=== PATIENT | male | born 1950 | race Caucasian/White ===

== ENCOUNTER 2016-11-22 07:05 | Day surgery (SDC) | payer OTHER ==
[2016-11-08 09:56] VITALS: BMI 29.0
[~2016-11-22] VITALS: Ht 180.3 cm; Wt 94.1 kg
[~2016-11-22 07:05] MED LIST: ACET-1256 PO; ASPI81TA28 PO; ATOR-26 PO; CEFAZOLIN IV 2,000 MG/60 ML D5W IV SCH; CLR10 PO; ECHI1CAP PO; EZET10TA63 PO; FENO67CA2 PO; FLUT0.15 NAE; GLUCTAB7 PO; IPRA1AER2 INH; LACTATED RINGER'S 1000ML 1,000 ML IV SCH; LISI-729 PO; METO25TA3 PO; MULT-1027 PO; NCDT21X TD; NITR0.4S UT; NXM/40 PO; RANI300T2 PO; SERT50TA PO; TRMCR130WC TOP; VGR50 PO; VITA1TAB4 PO; VITACAP26 PO; [UNRECOGNIZED DRUG - CODE] PO
[2016-11-22] MEDS ORDERED: MEPERIDINE HCL 25 MG/ML CARP IV PRN (07:30)
[2016-11-22] MEDS ORDERED: LABETALOL HCL IV 5 MG/ML 20ML IV PRN (07:30)
[2016-11-22] MEDS ORDERED: ATROPINE SULFATE 0.1 MG/ML 5ML SYR IV PRN (07:30)
[2016-11-22] MEDS ORDERED: HYDROmorphone INJ 2 MG/ML SYR/VIAL IV PRN (07:30)
[2016-11-22] MEDS ORDERED: PHENYLEPHRINE 100MCG/ML 5ML SYR IV PRN (07:30)
[2016-11-22] MEDS ORDERED: FLUMAZENIL 0.1 MG/1 ML 10 ML VIAL IV PRN (07:30)
[2016-11-22] MEDS ORDERED: ONDANSETRON INJ 2 MG/ML 2 ML VIAL IV PRN (07:30)
[2016-11-22] MEDS ORDERED: NALOXONE HCL 0.4 MG/1 ML VIAL/CARP IV PRN (07:30)
[2016-11-22] MEDS ORDERED: EpHEDrine SULFATE INJ 50 MG/ML AMP IV PRN (07:30)
[2016-11-22 07:35] VITALS: BP 125/79; PULSE 65; TEMP 36.6; O2SAT 96; Ht 180.3 cm; Wt 94.1 kg
[2016-11-22] MEDS ORDERED: LIDOCAINE 2% 20 MG/ML 5ML SYR ONE (07:52)
[2016-11-22] MEDS ORDERED: ROCURONIUM BROMIDE 10 MG/ML 5 ML VIAL ONE (07:52)
[2016-11-22] MEDS ORDERED: SUCCINYLCHOLINE CHLORIDE 20 MG/ML 10 ML VIAL IV ONE (07:52)
[2016-11-22] MEDS ORDERED: PROPOFOL IV EMULSION 10 MG/ML 20 ML VIAL IV ONE ×2 (07:52→09:45)
[2016-11-22] MEDS ORDERED: FENTANYL CITRATE INJ 50 MCG/1 ML 2 ML VIAL ONE (07:53)
[2016-11-22] MEDS ORDERED: MIDAZOLAM HCL 1 MG/ML 2ML VIAL ONE (07:53)
--- NOTE | 2016-11-22 08:59 | History and Physical ---
History & Physical Date Nov 22, 2016. History of Present Illness The patient is a 66 year old male with a vocal cord lesion noted on laryngoscopy. History of smoking. Additional History Hepatic Disease: No Endocrine Disorder: No Kidney Disease: No Hypertension: No Heart Disease: No Bleeding Tendencies: No Infectious Diseases: No Allergies Coded Allergies: Gluten (Unverified Allergy, Unknown, RYE OATS, WHEAT-GI UPSET, BELLY PAIN , 11/22/16) NO KNOWN DRUG ALLERGIES (Unverified Allergy, Unknown, NONE, 11/22/16) Home Medications Scheduled Aspirin (Aspirin Ec), 81 MG PO HS Atorvastatin (Lipitor), 80 MG PO QAM Diphenhydramine-Acetaminophen (Acetaminophen/Diphenhydra), 2 TAB PO HS Echinacea (Echinacea), 380 MG PO QAM Esomeprazole Magnesium (Nexium), 40 MG PO QAM Ezetimibe (Zetia), 10 MG PO HS Fenofibrate (Tricor), 67 MG PO QAM Fluticasone Propionate (Nasal) (Flonase Allergy Relief), 2 SPRAYS TAYLOR HS Yaypnfyjexk-Ihoixjhcdyk-Qqp C- (Glucosamine Chondroitin), 1 TAB PO QAM Ipratropium-Albuterol (Combivent Respimat), 1 PUFFS INH HS Lisinopril (Zestril), 2.5 MG PO QAM Loratadine (Claritin), 10 MG PO QAM Metoprolol Succ (Toprol Xl) (Toprol-Xl), 25 MG PO QAM Multiple Vitamin (Multi Vitamin), 1 TAB PO QAM Nicotine (Nicoderm Cq 21MG Patch), 1 PATCH TD DAILY Nitroglycerin (Nitrostat), 0.4 MG UT PRN Ranitidine Hcl (Zantac), 300 MG PO HS Sertraline (Zoloft), 50 MG PO HS Sildenafil Citrate (Viagra), 50 MG PO PRN Triamcinolone Acet (Aristocort 0.1%), 1 DOSE TOP PRN Vitamin E (Vitamin E), 400 UNITS PO QAM Vitamins C & E (Vitamin C), 1 TAB PO QAM Scheduled PRN Acetaminophen (Tylenol), 1,000 MG PO HS PRN for RN Physical Examination Skin: warm/dry, no rash Eyes: normal inspection, EOMI, sclerae normal ENT: normal ENT inspection, pharynx normal Head: normocephalic, atraumatic Neck: supple, no adenopathy, trachea midline Respiratory/Chest: lungs clear, normal breath sounds, no respiratory distress Cardiovascular: regular rate, rhythm, no edema, no murmur Diagnosis Vocal cord lesion, history of smoking Plan of Treatment Proceed with DL and biopsy - scds - ancef
[2016-11-22] MEDS ORDERED: OXYC-57 PO (09:09)
[2016-11-22] MEDS ORDERED: CEPH500C2 PO (09:09)
--- NOTE | 2016-11-22 09:13 | Discharge Instructions ---
Discharge Instructions Date of Service Nov 22, 2016. Admission Reason for Admission: Laryngopharyngeal Reflux Disease, Vocal Cord Lesio Discharge Discharge Diagnosis / Problem: Laryngeal lesion Discharge Goals Goal(s): Diagnostic testing Activity Recommendations Activity Limitations: as noted below (No voice use for 2 days, followed by 3 days of limited voice use. ) Lifting Limitations: no more than 5 pounds, no more than 10 pounds, until after follow-up appointment Exercise/Sports Limitations: until after follow-up appointment May Resume Sexual Activity: after follow-up appointment Driving or Machine Use: ok to drive 24 hrs after procedure as long as you are not taking narcotic pain medication . Instructions / Follow-Up Instructions / Follow-Up No voice use for 2 days, followed by limited voice use for 3 days Take antibiotic as directed take pain medication as needed Call for any bleeding from the throat Go to nearest ED if having any difficulty breathing Ok to restart your aspirin and vitamin E supplements in 48 hrs Current Hospital Diet Patient's current hospital diet: Discharge Diet Recommended Diet: Regular Diet Pending Studies Studies pending at discharge: no Medical Emergencies . Who to Call and When: Medical Emergencies: If at any time you feel your situation is an emergency, please call 911 immediately. . Non-Emergent Contact Non-Emergency issues call your: Specialist Contact Number: [phone] . . "Provider Documentation" section prepared by Neo Martin. VTE Core Measure Inpt VTE Proph given/why not?: Treatment not indicated [place] Drug Monitoring Program Search Results: patient reviewed within database, no issues identified
[2016-11-22] MEDS ORDERED: ONDANSETRON INJ 2 MG/ML 2 ML VIAL ONE (09:45)
[2016-11-22] MEDS ORDERED: DEXAMETHASONE SOD INJ 4 MG/ML VIAL ONE (09:45)
[2016-11-22] MEDS ORDERED: EpHEDrine SULFATE INJ 50 MG/ML AMP ONE (09:45)
--- NOTE | 2016-11-22 10:23 | [facility] Post Operative Brief Note ---
Immediate Operative Summary Operative Date Nov 22, 2016. Pre-Operative Diagnosis Vocal cord lesion Post-Operative Diagnosis Vocal cord lesion Procedure(s) Performed Direct Laryngoscopy and Biopsy Laryngeal Lesion Surgeon Dr. Neo Martin Customer Service Coordinator Surgeon(s) None Estimated Blood Loss 1ml Findings Right vocal cord lesion Specimens A. Right Vocal Cord Biopsy Drains none Anesthesia GETA Complication(s) None Disposition Recovery Room / PACU
[2016-11-22] MEDS: FENTANYL CITRATE INJ 50 MCG/1 ML 2 ML VIAL IV PRN ×3 (10:26→10:36)
--- NOTE | 2016-11-22 11:07 | Anesthesiology Progress Note ---
Anesthesia Post Op Note Date & Time Nov 22, 2016 at 11:07 Vital Signs Pain Intensity: 1 Vital Signs Past 12 Hours Date Time Temp Pulse Resp B/P Pulse Ox O2 Delivery O2 Flow Rate FiO2 11/22/16 10:55 108/65 11/22/16 10:54 69 20 98 11/22/16 10:54 69 20 11/22/16 10:50 120/63 11/22/16 10:49 63 13 95 11/22/16 10:49 62 13 11/22/16 10:48 65 16 96 11/22/16 10:48 36.8 65 16 11/22/16 10:45 115/67 11/22/16 10:43 66 20 94 11/22/16 10:43 65 20 11/22/16 10:40 118/66 11/22/16 10:38 65 18 96 11/22/16 10:38 64 18 11/22/16 10:35 127/73 11/22/16 10:33 66 17 11/22/16 10:33 66 17 98 11/22/16 10:32 68 12 99 11/22/16 10:32 69 12 11/22/16 10:30 119/67 11/22/16 10:27 66 11 11/22/16 10:27 64 11 102/71 100 11/22/16 10:17 36.5 68 16 120/68 99 Mask 10 11/22/16 07:35 36.6 65 20 125/79 96 Room Air Notes Mental Status: alert / awake / arousable, participated in evaluation Pt Amnestic to Procedure: Yes Nausea / Vomiting: adequately controlled Pain: adequately controlled Airway Patency, RR, SpO2: stable & adequate BP & HR: stable & adequate Hydration State: stable & adequate Anesthetic Complications: no major complications apparent
[2016-11-22 11:10] VITALS: BP 167/94; PULSE 104; TEMP 36.6; O2SAT 92
[2016-11-22 11:40] VITALS: BP 117/75; PULSE 63; TEMP 36.1; O2SAT 95
[2016-11-22 12:10] VITALS: BP 125/75; PULSE 71; TEMP 36; O2SAT 95
--- NOTE | 2016-11-22 13:07 | OPERATIVE REPORT ---
DATE OF OPERATION: 11/22/2016 PREOPERATIVE DIAGNOSIS: Right vocal cord lesion. POSTOPERATIVE DIAGNOSIS: Same. PROCEDURE: Direct laryngoscopy with right vocal cord biopsy. SPECIMEN: Right vocal cord biopsy sent for permanent section. COMPLICATIONS: None. DRAINS: None. ESTIMATED BLOOD LOSS: 1 mL. IV FLUIDS: 900 mL. URINE OUTPUT: 0 mL. ANESTHESIA: General endotracheal anesthesia. FINDINGS: See body of operative report. INDICATIONS AND HISTORY: This is a 66-year-old male who presented to my office with complaints of some hoarseness and sensation of postnasal drip. Evaluation in the office revealed his nasal endoscopy to be normal with no evidence of postnasal drip, but he did have a scalloped appearing lesion on the right true vocal cord. This was confirmed with videostroboscopy. He does have a significant smoking history. I discussed the options with him including observation versus consideration of a DL biopsy with his strong smoking history. He expresses understanding and wished to proceed with the biopsy. I discussed the risks with him including bleeding, infection, oral cavity injury, throat injury, worsening of voice. He expressed understanding, signed informed consent and wished to proceed. DESCRIPTION OF PROCEDURE: The patient was brought to the operating room, identified, procedure verified. He underwent general endotracheal anesthesia and prepped and draped in the usual fashion for a direct laryngoscopy. At this point, attention was directed to the mouth. A piece of wet gauze was placed into his upper gumline. At this point, using the anterior commissure scope, the pharyngeal and laryngeal regions were examined. Specifically, posterior pharyngeal wall, lateral pharyngeal anderson were normal appearing. No masses or lesions. The postcricoid space was normal appearing, piriform sinuses were normal appearing. No evidence of mass or lesion. Attention was directed to the larynx at this point. Supraglottic structures were normal. Specifically, epiglottis was crisp. The arytenoids were normal appearing. False cords were normal appearing. Attention was directed to the glottis and subglottis. Subglottis was normal appearing. The left true cord was crisp and normal appearing. Right true cord did have a very small scalloped ulceration at the level of the mid cord on the right hand side. This was biopsied. After adequate biopsy was obtained, hemostasis was assured with epinephrine soaked pledgets placed on to the biopsy site. This was allowed to sit on the site for several minutes to achieve hemostasis. Once this was achieved, the scope was removed. The pharynx was suctioned. The patient was returned to anesthesia and the gauze was taken out of the mouth. The patient was awakened and taken to PACU in stable condition. I attest to the content of the Intraoperative Record and any orders documented therein. Any exceptions are noted below. ERNST
== END 2016-11-22 12:10 | disposition home or self-care (01) ==
LOC: C.ACU 07:05
PROVIDERS: ATTEND Otolaryngology
DX: J38.2 Nodules of vocal cords (principal); J44.9 Chronic obstructive pulmonary disease, unspecified; I10 Essential (primary) hypertension; K21.9 Gastro-esophageal reflux disease without esophagitis; I25.10 Atherosclerotic heart disease of native coronary artery without angina pectoris; I25.2 Old myocardial infarction; F17.200 Nicotine dependence, unspecified, uncomplicated; E78.5 Hyperlipidemia, unspecified; M19.90 Unspecified osteoarthritis, unspecified site; F32.9 Major depressive disorder, single episode, unspecified; Z68.29 Body mass index [BMI] 29.0-29.9, adult; Z79.82 Long term (current) use of aspirin; Z82.5 Family history of asthma and other chronic lower respiratory diseases

== ENCOUNTER → 2017-06-21 | Outpatient (CLI) | payer OTHER ==
[~2017-06-21] VITALS: Ht 180.3 cm; Wt 98.7 kg
[~2017-06-21] MED LIST changes: -ASPI81TA28 PO; -CEFAZOLIN IV 2,000 MG/60 ML D5W IV SCH; -LACTATED RINGER'S 1000ML 1,000 ML IV SCH; -VITA1TAB4 PO; -VITACAP26 PO
[2017-06-21 13:39] VITALS: BP 113/78; PULSE 76; Ht 180.3 cm; Wt 98.7 kg
== END | disposition home or self-care (01) ==
LOC: C.NEUR 13:15
PROVIDERS: ATTEND Internal Medicine Pulmonary Disease
DX: R06.83 Snoring (principal); R06.81 Apnea, not elsewhere classified; I71.4 Abdominal aortic aneurysm, without rupture; I25.10 Atherosclerotic heart disease of native coronary artery without angina pectoris; G47.19 Other hypersomnia

== ENCOUNTER → 2017-12-06 | Outpatient (CLI) | payer OTHER ==
[~2017-12-06] VITALS: Ht 180.3 cm; Wt 214.2 kg
[2017-12-06 12:38] VITALS: BP 112/74; PULSE 74; Ht 180.3 cm; Wt 214.2 kg
== END | disposition home or self-care (01) ==
LOC: C.NEUR 11:54
PROVIDERS: ATTEND Internal Medicine Pulmonary Disease
DX: G47.33 Obstructive sleep apnea (adult) (pediatric) (principal); G47.19 Other hypersomnia; J31.0 Chronic rhinitis